=== PATIENT | male | born 1960 | race Caucasian/White ===

== ENCOUNTER 2019-05-16 16:32 | Emergency (ER) | payer MEDICAID ==
[~2019-05-16] VITALS: Ht 175.3 cm; Wt 84.1 kg
[~2019-05-16 16:32] MED LIST: ATOR10TA70 PO; GABA-530 PO; LISI10TA4 PO; OMEP20TA23 PO
[2019-05-16 17:28] LABS: BASOPHILS # (AUTO) 0.1 X10'3 (0-0.2); BASOPHILS % (AUTO) 0.5 % (0-1); EOSINOPHILS # (AUTO) 0.1 X10'3 (0-0.9); EOSINOPHILS % (AUTO) 0.6 % (0-6); HEMOGLOBIN 16.3 g/dl (14.0-17.9); LYMPHOCYTES # (AUTO) 1.6 X10'3 (1.1-4.8); LYMPHOCYTES % (AUTO) 12.8 % (21-51); MEAN CORPUSCULAR VOLUME 82.4 FL (78-98); MEAN PLATELET VOLUME 7.4 FL (7.4-10.4); MONOCYTES # (AUTO) 0.7 X10'3 (0-0.9); MONOCYTES % (AUTO) 5.8 % (2-12); NEUTROPHILS # (AUTO) 10.2 X10'3 (1.8-7.7); NEUTROPHILS % (AUTO) 80.3 % (42-75); PLATELET COUNT 399 X10'3 (140-440); RED BLOOD COUNT 5.83 X10'6 (4.70-6.10); RED CELL DISTRIBUTION WIDTH 14.3 % (11.5-14.5); WHITE BLOOD COUNT 12.7 X10'3 (4.5-11.0)
[2019-05-16 17:41] LABS: ALANINE AMINOTRANSFERASE 26 U/L (12-78); ALBUMIN 3.2 G/DL (3.4-5.0); ALBUMIN/GLOBULIN RATIO 0.8 (1.1-1.5); ALKALINE PHOSPHATASE 111 IU/L (46-116); ANION GAP 10 (8-16); ASPARTATE AMINO TRANSFERASE 39 U/L (10-37); BILIRUBIN,TOTAL 0.3 MG/DL (0.1-1.0); BLOOD UREA NITROGEN 23 MG/DL (7-18); BUN/CREATININE RATIO 31.1 (5.4-32.0); CALCIUM 8.9 MG/DL (8.5-10.1); CHLORIDE 104 MMOL/L (99-107); CREATININE 0.74 MG/DL (0.60-1.10); GLUCOSE 105 MG/DL (70-104); LIPASE 88 U/L (73-393); POTASSIUM 4.5 MMOL/L (3.5-5.1); SODIUM 139 MMOL/L (135-145); TOTAL CARBON DIOXIDE 25.2 MMOL/L (24-32); TOTAL PROTEIN 7.1 G/DL (6.4-8.2); eGFR > 90 ML/MIN
[2019-05-16] MEDS ORDERED: normal saline 1000ML IV soln IVB ONE (17:50)
[2019-05-16] MEDS ORDERED: ondansetron/PF 4mg/2ml inj IV ONE (17:50)
[2019-05-16] MEDS ORDERED: morphine 4 MG/ML inj SYRINge IV PRN (17:50)
[2019-05-16] MEDS ORDERED: iohexol 300mg/ml 100ml inj. ONE (17:57)
[2019-05-16 19:06] VITALS: BP 146/94
[2019-05-16] MEDS ORDERED: ONDA4TAB6 PO (19:08)
== END 2019-05-16 19:18 | disposition home or self-care (01) ==
LOC: ER 16:33
DX: R10.13 Epigastric pain (principal); I10 Essential (primary) hypertension; E11.9 Type 2 diabetes mellitus without complications; G89.29 Other chronic pain; F15.90 Other stimulant use, unspecified, uncomplicated; F17.200 Nicotine dependence, unspecified, uncomplicated; Z98.890 Other specified postprocedural states
CPT/HCPCS: 36415; 74177; 80053; 83690; 85025; 96374; 96375; 99284; J2270; J2405; J7030; Q9967